=== PATIENT | female | born 1975 | race Caucasian/White ===

== ENCOUNTER 2018-07-09 10:41 | Inpatient (IN) ==
--- NOTE | 2018-07-09 10:45 | History & Physical Report ---
Date of Encounter: 07/09/18 Time of Encounter: 10:44 24 Hour HP Update - Instructions Instructions: If the History and Physical is less than 30 days old and was completed prior to A.M. admission and or procedure and has NOT been updated on calendar day of procedure please complete this update prior to performing procedure. - Update Patient reports changes in Medical Condition: No Changes in examination, assessment, or condition: No Changes in Medication: No Preop tests/diagnostics Reviewed: Yes Surgery Remains Indicated: Yes Consent for Planned Operative Procedure(s) Verified: Yes - Pre-Operative Checklist Preoperative Checklist Indicated: No Prophylactic Antibiotic Ordered: Yes Is VTE Prophylaxis Indicated?: Yes
[2018-07-09] MEDS ORDERED: Pregabalin 75 MG CAPSULE PO ONE (10:58)
[2018-07-09] MEDS ORDERED: Famotidine 20 MG/2 ML VIAL IVP ONE (10:58)
[2018-07-09] MEDS ORDERED: Ethanol\\Acetic Acid\\Na Ace\\Ben 1,000 ML IRRIG.SOLN IR ONE (10:59)
[2018-07-09] MEDS ORDERED: Acetaminophen IV 1,000 MG/100 ML INFUS..BTL IVPB ONE (10:59)
[2018-07-09] MEDS ORDERED: Ringers Solution, Lactated 1,000 ML IVC SCH ×2 (11:00→15:02)
[2018-07-09] MEDS ORDERED: CeFAZolin Syr 2,000MG/20 ML 2,000 MG/20 ML SYRINGE IVPB ONE (11:01)
--- NOTE | 2018-07-09 11:26 | Anesthesia Evaluation PreOp ---
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 History: Denies Any Significant HX Other Medical History: GERD Anesthesia History: No Prior Anesthetic Complications : No (MADIHA) Alcohol Use: none Drug use: none Medications and Allergies Gabapentin 600 mg PO TID 07/09/18 [History] Rizatriptan Benzoate [Maxalt] 10 mg PO PRN PRN MDD 20MG IN 24 HOURS 07/09/18 [History] Allergy/AdvReac Type Severity Reaction Status Date / Time amitriptyline [From Elavil] AdvReac Vomiting Verified 07/09/18 10:58 tramadol [From Ultram] AdvReac Vomiting Verified 07/09/18 10:58 OPTIFOAM Allergy Blister Uncoded 07/09/18 10:58 - Meds/Allergy Pre-op Review Medications Reviewed: Yes Allergies Reviewed: Yes Beta Blockers on Current Med List: No Anesthesia Results - Labs Laboratory Tests 06/28/18 06/28/18 06/28/18 14:55 14:55 14:55 Hgb 12.9 Hct 39.0 Plt Count 259 PT 11.2 INR 1.0 APTT 37.6 H Sodium 141 Potassium 4.0 BUN 8 Creatinine 0.44 L Anesthesia Exam O2 Sat Height 1.68 m Height 1.68 m Weight 91.626 kg Weight 91.626 kg O2 Sat by Pulse Oximetry 99 Vital Signs Temp Pulse Resp BP Pulse Ox 98.0 F 66 18 141/77 99 07/09/18 10:54 07/09/18 10:54 07/09/18 10:54 07/09/18 10:54 07/09/18 10:54 Height: 5'6 Weight: 202 lbs NPO (# of Hours): [place] Pain Scale: 0 - HEENT Pupil (Motor): Pupils equal, EOMI Mallampati: II Teeth: Edentulous Oral Opening: Greater than 3 - ENVIRONMENTAL PROTECTION ECONOMIST LOC: Oriented ENVIRONMENTAL PROTECTION ECONOMIST Motor: Normal RUE, Normal LUE, Normal RLE, Normal LLE, Normal Face ENVIRONMENTAL PROTECTION ECONOMIST Sensory: Normal: RUE, LUE, RLE, LLE, Face - Cardiac Rhythm: Regular Murmur: None JVD: No Carotid Bruit: No - Pulmonary Breath Sounds: bilateral Clear Respiratory Effort: Symmetrical Anesthesia Assess/Plan ASA Score: 2 Level of consciousness: Cooperative, Oriented Anesthetic Plan: Regional Nerve Block, Spinal Regional Nerve Block Plan: Adductor canal Autologous Blood: No Monitoring Plan: Standard Monitors Recovery Plan: PACU (Discussed SAB, Adductor Canal Block, possible GA, agrees to proceed)
[2018-07-09] MEDS ORDERED: ROPIVACAINE HCL/PF 0.5% 30 ML VIAL ONE (11:30)
[2018-07-09] MEDS ORDERED: *HR* Midazolam HCl 5 MG/5 ML VIAL IVP ONE (11:30)
[2018-07-09] MEDS ORDERED: *HR* FentaNYL (PF) 100 MCG/2 ML VIAL ONE (11:30)
[2018-07-09] MEDS ORDERED: Dexamethasone 4 MG/ML VIAL ONE (12:17)
[2018-07-09] MEDS ORDERED: Lidocaine -MPF 2% 2 ML VIAL ONE (12:17)
[2018-07-09] MEDS ORDERED: Propofol 500 MG/50 ML INFUS..BTL ONE (12:17)
--- NOTE | 2018-07-09 12:52 | Anesthesia Procedures ---
Date of Encounter: 07/09/18 Time of Encounter: 12:50 Procedures: Anesthesia - Epidural/Spinal Patient ID/Chart reviewed: Yes Patient examined: Yes Site Prep: Aseptic Technique, Sterile prep and drape, 0.5% Chlorhexidine/Alcohol Patient position: upright Local Anesthetic: Lidocaine 1% Amount of Local Anesthetic used: 3 Interspace Used: L2-L3 Loss of Resistance (SRIKANTH): No Blood: No CSF: Yes Paresthesia: No Spinal Needle Gauge: 25 Spinal Dose: marcaine 10 mg Procedure: aseptic, amauri well, VSS, effective Vitals + FHT's: Vital Signs/O2 Sat, Most Current Temp Pulse Resp BP Pulse Ox 98.0 F 88 18 133/75 99 07/09/18 10:54 07/09/18 12:06 07/09/18 10:54 07/09/18 12:06 07/09/18 12:06 - Nerve Block Procedure Date: 07/09/18 Time: 12:51 Allergies/Adv Reactions: tramadolelavil, optifoam Pre-op Diagnosis: aseptic loosening L knee Surgical Procedure: robotic TKA revision Checklist: Correct Patient Identifier Correct side: Left Blood Thinner: No Monitor Applied: EKG, Pulse Oximetry Supplemental Oxygen via Nasal Cannula (L/min): 4 Sedation: Versed (mg): 5 Sedation: Fentanyl (mcg): 100 Indication: Post Op Analgesia Pre-op Neuro Deficits: No Block Type: Other (adductor) Catheter placed: No Sterile Technique: Yes Ultrasound used: Yes Anatomy identified: Yes Visual spread of Local: Yes Neuro Stimulation: No Blood on Needle Aspiration: No Smooth Injection of Local: Yes Pain with Injection of Local: No Prep: Chlorhexadine Needle: 21 x 100 mm Stimuplex Local: Ropivacaine Volume (cc): 0.5% 30cc Number of Attempts: 1 Complications: None/effective block Vitals: Vital Signs/O2 Sat, Most Current Temp Pulse Resp BP Pulse Ox 98.0 F 88 18 133/75 99 07/09/18 10:54 07/09/18 12:06 07/09/18 10:54 07/09/18 12:06 07/09/18 12:06 Comments: aseptic, amauri well
[2018-07-09] MEDS ORDERED: Tranexamic Acid 1,000 MG/10 ML VIAL ONE (12:56)
[2018-07-09] MEDS ORDERED: Ropivacaine/PF 0.5% 24.62 ML, EPINEPHrine 0.25 MG, Ketorolac 15 MG, Water for inj. (ste... IR ONE (13:00)
[2018-07-09] MEDS ORDERED: *HR* Propofol 200 MG/20 ML VIAL IVP ONE (13:35)
[2018-07-09] MEDS ORDERED: *HR* Promethazine 25 MG/ML VIAL IVP PRN ×2 (13:48→15:02)
[2018-07-09] MEDS ORDERED: Ondansetron 4 MG/2 ML VIAL IVP ONE (13:48)
--- NOTE | 2018-07-09 13:48 | Orthopedic Operative Note ---
Date of procedure: 07/09/18 Pre-op diagnosis: Aseptic loosening left total knee Post-op diagnosis: same Procedure: Procedure: Left revision robotic-assisted Total knee replacement Estimated blood loss: 200 cc Hardware: Metal and polyethylene replacement. Leela Femur: 1, 15 x 100 stem Tibia: 1, 5 mm augment medial and lateral 10 x 100 stem TS insert: 19 Exam Under anesthesia: 0 degrees flexion to 60, 2 degrees varus as calculated by the robot full flexion and no instability Procedural Notes: Loose tibial component. Operative procedure: The patient was brought to the operating room and placed on the operating room table. After general anesthesia was administered the operative knee was examined. Findings were noted in the exam under anesthesia. The operative extremity was prepped and draped in sterile surgical fashion. The patient received IV antibiotics prior to skin incision. A standard midline incision was made centered over the patella. Through the old incision, incision was made through the skin and subcutaneous tissue. A medial parapatellar tendon approach was performed. Care was taken to preserve tissue along the medial aspect of the patella. And to protect the patella tendon. The deep MCL was released off the medial tibia. The infra patella fat pad was excised. Fluid encountered was normal appearing, sent for Gram stain and culture. The patella was everted patella implant and no visible damage. Knee was brought into flexion. Steinmann pins were placed in the tibia and the femur for the tibial and femoral arrays respectively. Checkpoints were also placed in the tibia and the femur for calculation purposes. The knee including the femur and the tibial registered. Using careful technique, the femoral component was removed from the distal femur with an osteotome and oscillating saw without bone loss, this technique was employed on tibial side as well tibial component was loose to begin with. No bone was lost. Femoral cuts were made first with robotic assistance, these included the anterior cut posterior cuts chamfer cuts. Tibial cut was then performed with robotic assistance as well. Bone fragments were removed. The size 1 femoral guide was seated box cut was made lug holes are drilled. The size 1 tibial tray was seated and prepared with the fin cutter. Trial reduction with the 19 TS Carrie revealed extension of 0 degree and 3 degree varus and full flexion. No varus valgus instability. Trial reduction revealed excellent patella tracking. All trial components were removed all bony surfaces were irrigated. The distal femur was reamed up to a size 15 x 100, the proximal tibia was reamed up to size 10 x 100. Components were settled on the back table. The Tibia was seated followed by the femur, The selected Carrie size was seated and secured. Patient had similar findings for motion and stability. The knee was closed by the PA. The knee was then irrigated out with 2 L of pulse irrigation. The extensor mechanism was closed with #2 FiberWire suture and #2 PDS suture. The subcutaneous tissue was then irrigated and closed deep with #1 PDS suture superficially with 0 PDS suture and skin was closed with zip tie The patient was then placed in a sterile dressing and a postoperative brace extubated and transferred to recovery room in stable condition. Anesthesia: spinal Surgeon: Jhonatan Garcia Was there an occupational therapy assistant present: No Estimated blood loss (cc): 200 Condition: stable Disposition: PACU
[2018-07-09 14:46] LABS: Hematocrit 38.4 % (35.3-44.9); Hemoglobin 12.7 g/dL (11.5-15.4)
[2018-07-09] MEDS ORDERED: Sennosides 8.6 MG TABLET PO PRN (15:02)
[2018-07-09] MEDS ORDERED: Temazepam 15 MG CAPSULE PO PRN (15:02)
[2018-07-09] MEDS ORDERED: traMADol 50 MG TABLET PO PRN (15:02)
[2018-07-09] MEDS ORDERED: Rizatriptan Benzoate [Maxalt] 10 MG PO PRN (15:02)
[2018-07-09] MEDS ORDERED: MOM Conc 10 ML UD.LIQ PO PRN (15:02)
[2018-07-09] MEDS ORDERED: Naloxone 0.4 MG/ML INJ IVP PRN (15:02)
[2018-07-09] MEDS: *HR* OxyCODONE Immed Rel 5 MG TABLET PO PRN ×2 (16:08→22:26)
[2018-07-09] MEDS: Gabapentin 300 MG CAPSULE PO SCH ×2 (16:08→22:26)
[2018-07-09] MEDS: Ascorbic Acid 500 MG TABLET PO SCH (16:08)
[2018-07-09] MEDS: *HR* Enoxaparin 30 MG/0.3 ML SYRINGE SQ SCH (16:08)
[2018-07-09] MEDS: Ondansetron 4 MG/2 ML VIAL IVP PRN (17:54)
[2018-07-09] MEDS ORDERED: *HR* Enoxaparin 30 MG/0.3 ML SYRINGE SQ SCH (18:00)
--- NOTE | 2018-07-09 21:13 | Discharge Summary ---
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 Qualifiers: Encounter type: subsequent encounter Qualified Code(s): T84.033D - Mechanical loosening of internal left knee prosthetic joint, subsequent encounter (3) GERD (gastroesophageal reflux disease) Priority: Secondary Status: Chronic Qualifiers: Esophagitis presence: esophagitis presence not specified Qualified Code(s): K21.9 - Gastro-esophageal reflux disease without esophagitis (4) Obesity (BMI 30.0-34.9) Priority: Secondary Status: Chronic (5) Hypertension Priority: Secondary Status: Chronic Qualifiers: Hypertension type: unspecified Qualified Code(s): I10 - Essential (primary) hypertension (6) Migraines Priority: Secondary Status: Chronic Qualifiers: Migraine type: unspecified Status migrainosus presence: without status migrainosus Intractability: not intractable Qualified Code(s): G43.909 - Migraine, unspecified, not intractable, without status migrainosus - Hospital Course Hospital course: Ms. Broderick is a 42 year old female status post Left TKR revision 07/09/18 secondary to loosening of previous joint hardware with medical history of HTN, migraines, GERD, obesity. She had asymptomatic hypotension POD#1 which resolved with increased fluid intake. She had an otherwise uneventful hospital course and participated in therapy. Stable for discharge. Will follow up in [facility] office next week. PCR - POD#2 s/p left TKR revision 07/09/18 Patient seen at bedside, without complaints. A&O x 3 Afebrile, vital signs stable. Temp did reach 99.7 overnight but has since improved. Labs reviewed. H/H - 10.6/32.4 stable, asymptomatic Pain control: adequate Participating in PT. All questions and concerns addressed. Educated on use of incentive spirometer. Encouraged ambulation and proper hydration. Patient educated on post-operative restrictions and post-operative care. Assessment and plan: Continue with postoperative care Discharge plan: Home with [facility], [place] today - Time Spent with Patient Total time spent providing and/or coordinating discharge services: - Discharge Medications Prescriptions: New Aspirin Enteric Coated [Aspirin EC] 325 mg PO BID 10 Days #20 tablet. Docusate Sodium [Colace] 100 mg PO BID 5 Days #10 capsule OxyCODONE Immed Rel [Roxicodone 5 MG] 5 mg PO Q6HR PRN 5 Days #20 tablet PRN Reason: Severe Pain Continued Gabapentin 600 mg PO TID Rizatriptan Benzoate [Maxalt] 10 mg PO PRN PRN MDD 20MG IN 24 HOURS PRN Reason: Migraine Headache Home Medications: Aspirin Enteric Coated [Aspirin EC] 325 mg PO BID 10 Days #20 tablet. 07/09/18 [Rx] Docusate Sodium [Colace] 100 mg PO BID 5 Days #10 capsule 07/09/18 [Rx] Gabapentin 600 mg PO TID 07/09/18 [History] OxyCODONE Immed Rel [Roxicodone 5 MG] 5 mg PO Q6HR PRN 5 Days #20 tablet 07/09/18 [Rx] Rizatriptan Benzoate [Maxalt] 10 mg PO PRN PRN MDD 20MG IN 24 HOURS 07/09/18 [History] Allergies/Adverse Reactions: Allergy/AdvReac Type Severity Reaction Status Date / Time amitriptyline [From Elavil] AdvReac Vomiting Verified 07/09/18 10:58 tramadol [From Ultram] AdvReac Vomiting Verified 07/09/18 10:58 OPTIFOAM Allergy Blister Uncoded 07/09/18 10:58 Date of admission: 07/09/18 15:01 Primary care physician: PCP NONE Consults: 07/09/18 15:02 Consult to Nutrition [CONS] Routine Comment: Consulting Provider: NUTRITION Reason for Dietary Consult: Other Other:: Proper nutrition to facilitate wound healing Consult to Orthopedic Navigator [CONS] [CONS] Routine Consult to Physical Therapy [CONS] Routine Comment: Evaluate, develop and impliment POC Reason for Consult: post knee surgery Does patient have active BEDREST order?: No Is patient medically & hemodynamically stable?: Yes Consult to Pipeline Engineer [CONS] Routine Reason for SW Consult: post op joint replacement RT Post Op Consult [CONS] Routine Discharging clinician: Jhonatan Garcia Anticipated date of discharge: 07/11/18 - VTE Documentation of Mechanical Device: Venous foot pump, device Labs on day of discharge: Labs from last 24 hours 07/09/18 14:30 Hgb 12.7 Hct 38.4 Preliminary micro results at discharge 07/09/18 12:35 Wound Culture - Preliminary Surgery Culture is incubating. 07/09/18 12:35 Anaerobic Culture - Preliminary Surgery Culture is incubating. Short CBC 07/11/18 Range/Units 02:19 WBC 9.9 (4.3-11.1) K/mcL Hgb 10.6 L (11.5-15.4) g/dL Hct 32.4 L (35.3-44.9) % Plt Count 184 (140-400) K/mcL Neutrophils # 7.4 (1.6-8.9) K/mcL BMP 07/11/18 Range/Units 02:19 Sodium 138 (136-145) mEq/L Potassium 4.0 (3.5-5.1) mEq/L Chloride 103 (98-107) mEq/L Carbon Dioxide 27 (23-29) mEq/L BUN 10 (6-20) mg/dL Creatinine 0.50 L (0.60-1.20) mg/dL Glucose 131 H (70-105) mg/dL Calcium 8.5 L (8.6-10.3) mg/dL - Impressions ITS Impressions Knee X-Ray 07/09/18 01:00 IMPRESSION: Status post revision arthroplasty of the left knee. No acute postoperative complication. D/ / 07/09/2018 14:42:36 Noah Joshua MD / baljit Interpreting Provider: Noah Joshua MD - Patient Status Disposition: Home Health Service Condition: Good Functional capacity at discharge: uses cane/walker Overall status at discharge: patient is back to baseline - Discharge Instructions Follow Up With: Shara George PAC [Physician Septic Pump Truck Driver] - 07/19/18 9:45 am Jhonatan Garcia MD [Partnered Physician] - 08/08/18 4:00 pm Additional Instructions: Discharge Instructions: Total Knee Replacement Please call [facility] ([phone]), your Primary Care Physician, or report to the Emergency Room if you have any of the following symptoms: Nausea, vomiting, fever greater that 101.5, swelling, chest pain, shortness of breath, increased pain/redness/drainage/odor for your incision site, numbness/tingling, or any other concerning symptoms. ACTIVITY:Weight-bearing as tolerated. You may progress off support (crutches or walker) as tolerated. Incentive Spirometer 10 times an hour. MEDICATIONS: Upon discharge resume your home medications. Take all the medications as prescribed. Take a stool softener if taking narcotic pain medications. Stool softeners are only effective if you drink enough fluids. Drink 6-8 glass of water or fluids a day, unless this is not allowed for another health problem. Despite using stool softeners, if you haven't had a bowel movement in 3 days, please switch to a gentle laxative. Gentle laxatives are sold over the counter. You should have a bowel movement within 24 hours, if not call the office. You will be discharged from the hospital with a prescription for pain medication. You are encouraged to decrease the use of narcotic pain medication as tolerated. Should you require a refill, please call the office. [facility] prescribes narcotic pain medication for only 4-6 weeks after surgery. If you require pain medication beyond this time period, you may be referred to your Primary Care Physician or to the Pain Clinic for further evaluation. Plan ahead for refills on pain medication as many narcotics either need to be picked up at the office or mailed. It is best to call 48-72 hours in advance of needing a prescription refill so you don't run out of medication. To help control the post-operative pain, you may take NSAIDs (Aleve,Advil, Motrin, Ibuprofen, Naprosyn) or Tylenol as prescribed on the bottle in addition to the pain medication. ANTICOAGULATION (blood thinners): Continue your Aspirin, Lovenox or Coumadin as prescribed to help prevent a blood clot in the leg or in the lungs. As long as your incision remains dry and you tolerate the NSAIDs (Aleve, Advil, Motrin, ibuprofen, naprosyn), it is OK to use the NSAIDS while you are taking your anticoagulation medication. Should your incision start to drain, stop the NSAID and contact our office. Common symptoms of blood clot in the legs include: localized pain, swelling, calf tenderness, redness or discoloration of the skin. Blood clot in the lung symptoms include: shortness of breath, rapid pulse, sweating, and chest pain that worsens with deep breathing, coughing up blood, lightheadedness, feelings of anxiety. If you experience any of these symptoms notify your physician immediately, go to the emergency room, or if having trouble breathing, call 911. WOUND CARE: Leave the dressing on for 7 to 10days. You may change the dressing if it becomes saturated greater than 50%. Do not get the dressing wet at anytime. Wash your hands with antibacterial soap, rinse and dry prior to any wound care. If you have tanja the visiting nurse or rehab facility can remove the stapes 10-14 days after surgery and place steri-strips across the wound. Leave the steri-strips in place until they fall off on their won. You may let water from the shower run on top of the steri-strips. If you do not have a visiting nurse or rehab facility, you will need to return to the office at 10-14 days for the tanja to be removed. If you have itching or redness around the dressing call the office. FOLLOW-UP: Please follow up with your surgeon in the orthopedic clinic in 4 weeks from the day of surgery. If you have tanja that need to be removed, you will need to come back to the office in 10-14 days from the day of surgery. - Diet and Activity Activity: ambulate only with your walker, as per physical therapy Diet: advance to your usual diet
--- NOTE | 2018-07-09 21:15 | Physician Discharge Referral ---
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 For more information, call the [place] Tobacco Quit Line at 6-707-DRSW-NOW. - Diet/Nutrition Diet/Nutrition Orders: Regular - Activity Activity Orders: Ambulate, Chair, Walker - Services Needed Following services are medically necessary services: Nursing, Home Health Aide, Physical Therapy, Occupational Therapy Home Care Orders: Knee Continuity: Opsite dressing, leave intact until first post-operative visit. If dressing becomes >50% saturated, contact office, remove dressing and place appropriate dressing in its place. Do not allow for dressing to get wet. Zipline/Toponas in place, plan to remove at post-operative day #14-16. Total Joint Precautions x 6 weeks Apply cold therapy wrap 3-6x/day for 20 minutes at a time. Encourage ambulation throughout the day Use Incentive spirometer 10x/hour. Elevate affected extremity above heart as tolerated. Brace: Wear knee immobilizer at night x 2 weeks. - Transfer Medications Home Medications: Aspirin Enteric Coated [Aspirin EC] 325 mg PO BID 10 Days #20 tablet. 07/09/18 [Rx] Docusate Sodium [Colace] 100 mg PO BID 5 Days #10 capsule 07/09/18 [Rx] Gabapentin 600 mg PO TID 07/09/18 [History] OxyCODONE Immed Rel [Roxicodone 5 MG] 5 mg PO Q6HR PRN 5 Days #20 tablet 07/09/18 [Rx] Rizatriptan Benzoate [Maxalt] 10 mg PO PRN PRN MDD 20MG IN 24 HOURS 07/09/18 [History] Allergies/Adverse Reactions: Allergy/AdvReac Type Severity Reaction Status Date / Time amitriptyline [From Elavil] AdvReac Vomiting Verified 07/09/18 10:58 tramadol [From Ultram] AdvReac Vomiting Verified 07/09/18 10:58 OPTIFOAM Allergy Blister Uncoded 07/09/18 10:58 Certification: Further, I certify that my clinical findings support that this patient is homebound (i.e. absences from home require considerable and taxing effort and are for medical reasons or quaker services or infrequently or short duration when for other reasons) because: Homebound Reason: Post-surgery restriction and or conditions limit ability to leave home Attestation: My signature below is to certify that this patient is under my care and that I, or nurse practitioner, or a physician grants assistant working with me, has a [id number] encounter with this patient.
[2018-07-10] MEDS: *HR* Enoxaparin 30 MG/0.3 ML SYRINGE SQ SCH ×2 (05:53→16:24)
[2018-07-10] MEDS: HYDROcodone BIT/Homatropine 5 MG TABLET PO PRN ×3 (05:58→16:24)
--- NOTE | 2018-07-10 06:37 | Orthopedics Progress Note ---
Date of Encounter: 07/10/18 Time of Encounter: 06:36 Subjective Interval history: Patient was seen this morning doing well without complaints. Afebrile vital signs stable. Operative extremity: Neurovascularly intact Dressing clean dry and intact Calves nontender Assessment and plan: Continue with postoperative care Plan for discharge today Objective Vital signs: Vital Signs Temp Pulse Pulse Resp BP Pulse Ox 07/10/18 06:03 77 07/09/18 23:31 97.5 F L 79 16 115/73 94 07/09/18 22:35 80 07/09/18 19:31 97.3 F L 82 16 103/70 92 07/09/18 15:59 98.2 F 74 18 117/80 98 07/09/18 14:52 97.6 F 59 16 129/75 100 07/09/18 14:42 97.6 F 64 14 124/85 100 07/09/18 14:32 66 11 134/89 100 07/09/18 14:22 63 12 127/84 100 07/09/18 14:12 98.5 F 68 16 114/74 99 07/09/18 12:06 88 133/75 99 07/09/18 11:56 81 139/87 97 07/09/18 10:54 98.0 F 66 18 141/77 99 Intake and Output 07/09/18 07/09/18 07/10/18 15:59 23:59 07:59 Intake Total 20 / 740 720 / 740 Output Total 200 / 200 Balance -180 / 540 720 / 540 Intake: IV Fluids 20 / 120 100 / 120 Ancef Syringe 2,000 MG/20 ML 2, 20 / 20 000 mg In 20 ml @ 200 mls/hr IVPB PREOP ONE Rx#:[id number] Ancef 2,000 MG In 0.9 % Sodium 100 / 100 Chloride 100 ML @ 200 mls/hr IVPB Q8HR COLLEEN Rx#:[id number] Oral 620 / 620 Output: Estimated Blood Loss 200 / 200 Other: Meal Dinner Percent of Meal Consumed 100% # Voids 1 1 1 Weight 91.626 kg Blood Glucose* 145 - Labs CBC & BMP: 07/09/18 14:30 Labs: Abnormal lab results POC Glucose 145 mg/dL (70-99) H 07/09/18 23:29 - VTE Documentation of Mechanical Device: Venous foot pump, device Consult Discharge Plan - Plan Referrals: NONE,PCP [Primary Care Provider] -
[2018-07-10 06:50] LABS: BUN/Creatinine Ratio 19 (6-26); Blood Urea Nitrogen 8 mg/dL (6-20); Calcium 8.8 mg/dL (8.6-10.3); Carbon Dioxide 25 mEq/L (23-29); Chloride 106 mEq/L (98-107); Glucose 130 mg/dL (70-105); Osmolality,Calculated 284 (280-300); Potassium 4.3 mEq/L (3.5-5.1); Sodium 137 mEq/L (136-145); eGFR For Non-African Americans > 60 (> 60)
[2018-07-10 06:58] LABS: Basophils % 0.1 %; Hematocrit 33.6 % (35.3-44.9); Hemoglobin 11.2 g/dL (11.5-15.4); Immature Granulocytes % 0.3 % (0-4); Lymphocytes # 0.9 K/mcL (0.6-4.6); Lymphocytes % 7.6 %; Mean Corpuscular HGB Conc 33.3 g/dL (31.6-35.5); Mean Corpuscular Hemoglobin 29.4 pg (28.0-33.3); Mean Corpuscular Volume 88.2 fL (83.0-100.0); Mean Platelet Volume 10.9 fL (9.4-12.4); Monocytes # 0.6 K/mcL (0.0-1.3); Monocytes % 5.1 %; Neutrophils # 10.4 K/mcL (1.6-8.9); Platelet Count 222 K/mcL (140-400); Red Blood Count 3.81 M/mcL (3.82-4.97); Red Cell Distribution Width 13.2 % (11.5-14.5); Segmented Neutrophils % 86.9 %
[2018-07-10] MEDS: Gabapentin 300 MG CAPSULE PO SCH ×3 (08:46→22:01)
[2018-07-10] MEDS: Ascorbic Acid 500 MG TABLET PO SCH ×2 (08:47→16:24)
[2018-07-10] MEDS: Multivit/Ca/Min/Fe/FA 1 TAB TABLET PO SCH (08:47)
--- NOTE | 2018-07-10 17:43 | Event Note ---
Date of Encounter: 07/10/18 Time of Encounter: 12:15 PCR - POD#1 s/p left TKR revision 07/09/18 Patient seen at bedside, without complaints other than she is concerned about her BP being low. A&O x 3 Afebrile, vital signs stable although BP has lowered to 95/57. She is asymptomatic at this time and states she feels well. Denies any dizziness, lightheadedness, changes in vision or weakness. She has just finished walking with therapist and feels well. Discussed with patient will continue to monitor, if improves this afternoon and continues to be asymptomatic after pm therapy then will consider discharge. Patient feels that she does not want to leave with her BP low. Again she is asymptomatic but would consider fluid bolus if stays low or develops symptoms. Labs reviewed. H/H - 11.2/33.6 stable, asymptomatic Pain control: adequate Participating in PT. All questions and concerns addressed. Educated on use of incentive spirometer. Encouraged ambulation and proper hydration. Patient educated on post-operative restrictions and post-operative care. Assessment and plan: Continue with postoperative care Discharge plan: Home with home health, consider DC this afternoon if stable BP
[2018-07-10] MEDS: *HR* OxyCODONE Immed Rel 5 MG TABLET PO PRN (22:00)
[2018-07-11] MEDS: Ondansetron 4 MG/2 ML VIAL IVP PRN (00:31)
[2018-07-11 03:17] LABS: Basophils % 0.2 %; Eosinophils % 0.2 %; Hematocrit 32.4 % (35.3-44.9); Hemoglobin 10.6 g/dL (11.5-15.4); Immature Granulocytes % 0.5 % (0-4); Lymphocytes # 1.6 K/mcL (0.6-4.6); Lymphocytes % 16.4 %; Mean Corpuscular HGB Conc 32.7 g/dL (31.6-35.5); Mean Corpuscular Hemoglobin 28.9 pg (28.0-33.3); Mean Corpuscular Volume 88.3 fL (83.0-100.0); Mean Platelet Volume 11.2 fL (9.4-12.4); Monocytes # 0.8 K/mcL (0.0-1.3); Monocytes % 7.9 %; Neutrophils # 7.4 K/mcL (1.6-8.9); Platelet Count 184 K/mcL (140-400); Red Blood Count 3.67 M/mcL (3.82-4.97); Red Cell Distribution Width 13.2 % (11.5-14.5); Segmented Neutrophils % 74.8 %
[2018-07-11 04:53] LABS: BUN/Creatinine Ratio 20 (6-26); Blood Urea Nitrogen 10 mg/dL (6-20); Calcium 8.5 mg/dL (8.6-10.3); Carbon Dioxide 27 mEq/L (23-29); Chloride 103 mEq/L (98-107); Glucose 131 mg/dL (70-105); Osmolality,Calculated 287 (280-300); Sodium 138 mEq/L (136-145); eGFR For Non-African Americans > 60 (> 60)
--- NOTE | 2018-07-11 06:22 | Orthopedics Progress Note ---
Date of Encounter: 07/11/18 Time of Encounter: 06:22 Subjective Interval history: Patient was seen this morning doing well without complaints. Afebrile vital signs stable. Operative extremity: Neurovascularly intact Dressing clean dry and intact Calves nontender Assessment and plan: Continue with postoperative care Discharge held secondary for pain control, Plan for discharge today Objective Vital signs: Vital Signs Temp Pulse Pulse Resp BP Pulse Ox 07/11/18 00:36 90 07/11/18 00:21 99.7 F H 98 18 138/78 95 07/10/18 21:42 88 07/10/18 19:17 98.7 F 83 16 106/68 100 07/10/18 15:28 98.3 F 95 16 104/68 97 07/10/18 10:47 97.6 F 72 16 95/57 98 07/10/18 07:21 98.3 F 75 16 100/64 96 Intake and Output 07/10/18 07/10/18 07/11/18 15:59 23:59 07:59 Intake Total 120 / 540 420 / 540 200 / 200 Output Total 0 / 0 Balance 120 / 540 420 / 540 200 / 200 Intake: Oral 120 / 540 420 / 540 200 / 200 Output: Urine 0 / 0 Other: Meal Breakfast Dinner Percent of Meal Consumed 100% 90% # Voids 1 1 Weight 92.5 kg Patient Weight 07/11/18 23:59 Weight 92.5 kg - Labs CBC & BMP: 07/11/18 02:19 07/11/18 02:19 Labs: Abnormal lab results WBC 11.9 K/mcL (4.3-11.1) H 07/10/18 05:58 RBC 3.67 M/mcL (3.82-4.97) L 07/11/18 02:19 Hgb 10.6 g/dL (11.5-15.4) L 07/11/18 02:19 Hct 32.4 % (35.3-44.9) L 07/11/18 02:19 10.4 K/mcL (1.6-8.9) H 07/10/18 05:58 0.50 mg/dL (0.60-1.20) L 07/11/18 02:19 Glucose 131 mg/dL (70-105) H 07/11/18 02:19 POC Glucose 145 mg/dL (70-99) H 07/09/18 23:29 Calcium 8.5 mg/dL (8.6-10.3) L 07/11/18 02:19 - VTE Documentation of Mechanical Device: Venous foot pump, device Consult Discharge Plan - Plan Referrals: NONE,PCP [Primary Care Provider] -
[2018-07-11] MEDS: HYDROcodone BIT/Homatropine 5 MG TABLET PO PRN (06:30)
[2018-07-11] MEDS: *HR* Enoxaparin 30 MG/0.3 ML SYRINGE SQ SCH (06:31)
[2018-07-11] MEDS: Ascorbic Acid 500 MG TABLET PO SCH (07:52)
[2018-07-11] MEDS: Gabapentin 300 MG CAPSULE PO SCH ×2 (07:52→15:55)
[2018-07-11] MEDS: Multivit/Ca/Min/Fe/FA 1 TAB TABLET PO SCH (07:52)
[2018-07-11] MEDS ORDERED: Acetaminophen 325 MG TABLET PO ONE (11:54)
[2018-07-11 16:00] VITALS: BP 119/77
== END 2018-07-11 16:02 | disposition home health service (06) | DRG 302 ==
LOC: SAMDAY 10:41 → 3NENU 15:01
PROVIDERS: ADMIT Orthopaedic Surgery; ATTEND Orthopaedic Surgery